=== PATIENT | female | born 1965 | race Caucasian/White ===

== ENCOUNTER → 2025-09-22 | Outpatient (CLI) | payer OTHER, SELFPAY ==
--- NOTE | 2025-09-22 08:59 | ECHOD_ITS ---
Reason For Study Reason For Study: CORONARY ARTERY DISEASE Procedure This was a 2D Doppler, Color Flow transthoracic echocardiogram. The patient is in sinus rhythm. Exam performed in department. Left Ventricle Normal size and thickness. The left ventricular ejection fraction is 60 %. No evidence for diastolic dysfunction. Right Ventricle Normal right ventricle. Atria The left and right atria are normal. Mitral Valve Mild (1+) mitral valve insufficiency. Tricuspid Valve Trivial tricuspid valve insufficiency. Normal pulmonary artery pressure. Aortic Valve Trisinus/trileaflet aortic valve. Pulmonic Valve Trivial pulmonic valve insufficiency. Great Vessels Normal sized aortic root. Pericardium/Pleural No pericardial effusion. MMode/2D Measurements & Calculations LVIDd: 4.6 cm IVSd: 0.80 cm LVOT diam: 1.9 cm LVIDs: 2.9 cm LVPWd: 0.84 cm LVOT area: 2.8 cm2 RVDd: 3.7 cm FS: 37.6 % Ao root diam: 3.5 cm asc Aorta Diam: 3.7 cm LAV(MOD- bp): 41.6 ml LAV(MOD- bp) Indexed: 23.6 ml/m2 LAV(MOD- sp2): 41.5 ml LAV(MOD- sp4): 41.5 ml LVAd ap4: 25.5 cm2 LVAd ap2: 27.0 cm2 EDV(MOD- bp): 80.1 ml LVLd ap4: 7.1 cm LVLd ap2: 7.3 cm ESV(MOD- bp): 32.0 ml EDV(MOD-sp4): 75.6 ml EDV(MOD-sp2): 84.4 ml EF(MOD- bp): 60.1 % EDV(sp4-el): 77.7 ml EDV(sp2-el): 85.3 ml LVAs ap4: 15.0 cm2 LVAs ap2: 14.9 cm2 LVLs ap4: 6.0 cm LVLs ap2: 6.1 cm ESV(MOD-sp4): 31.5 ml ESV(MOD-sp2): 32.1 ml ESV(sp4-el): 31.5 ml ESV(sp2-el): 30.9 ml EF(MOD-sp4): 58.4 % EF(MOD-sp2): 62.0 % EF(sp4-el): 59.5 % SV(MOD-sp4): 44.1 ml SV(MOD-sp2): 52.4 ml SV(sp4- el): 46.3 ml SI(MOD-sp4): 25.1 ml/m2 SI(MOD-sp2): 29.7 ml/m2 Ao sinus diam: 2.[address] Junction: 2.6 cm LA A4 area: 16.2 cm2 LA dimension(2D): 3.2 cm TAPSE: 1.9 cm RA A4 area: 12.8 cm2 Time Measurements MV dec time: 0.18 sec Doppler Measurements & Calculations MV E max leon: 71.3 cm/sec Lat Peak E' Leon: 11.5 cm/sec Med Peak E' Leon: 10.3 cm/sec MV A max leon: 73.0 cm/sec E/E' lat: 6.2 E/E' med: 6.9 MV E/A: 0.98 MV dec slope: 390.9 cm/sec2 Ao V2 max: 136.4 cm/sec LV V1 max: 94.5 cm/sec Ao max P.4 mmHg LV V1 max P.6 mmHg Ao V2 mean: 96.5 cm/sec LV V1 mean P.3 mmHg Ao mean P.2 mmHg LV V1 mean: 74.7 cm/sec Ao V2 VTI: 29.5 cm LV V1 VTI: 22.4 cm AV (velocity ratio): 0.76 JAVID(I,D): 2.1 cm2 JAVID(V,D): 1.9 cm2 SV(LVOT): 62.7 ml PA V2 max: 83.9 cm/sec TR max leon: 176.4 cm/sec TR max P.4 mmHg ECHO/Echo Complete Interpretation Summary The left ventricular ejection fraction is 60 %. Mild (1+) mitral valve insufficiency. Ordering Physician: Vikas Peace Referring Physician: MELECIO BAUTISTA Performed By: Michelle Cronin RDCS
== END | disposition home or self-care (01) ==
LOC: CVS 08:57
PROVIDERS: PCP Nurse Practitioner Family; Referring Provider Internal Medicine Cardiovascular Disease; Visit Provider Internal Medicine Cardiovascular Disease
DX: R93.89 Abnormal findings on diagnostic imaging of other specified body structures (principal); I25.10 Atherosclerotic heart disease of native coronary artery without angina pectoris; E78.5 Hyperlipidemia, unspecified; R10.13 Epigastric pain
CPT/HCPCS: 93306